=== PATIENT | female | born 1960 | race Caucasian/White ===

== ENCOUNTER → 2018-01-30 | Day surgery (SDC) | payer OTHER ==
[~2018-01-30] VITALS: Ht 170.2 cm; Wt 54.4 kg
[~2018-01-30] MED LIST: MULTI-VITAMIN1 EAC1 PO; VITAMIN D1000 UNIT PO
--- NOTE | 2018-01-30 11:43 | Operative Report ---
Operative/Inv Procedure Report Surgery Date: 01/30/18 Name of Procedure: Right shoulder arthroscopy with rotator cuff repair and subacromial decompression, open biceps tenodesis Pre-Operative Diagnosis: Right shoulder supraspinatus tendon tear, impingement, and biceps tendinitis Post-Operative Diagnosis: Right shoulder supraspinatus tendon tear, impingement, and biceps tendinitis Estimated Blood Loss: scant Surgeon/Agent Telegrapher: Tenzin ENCISO,Zenia Joe MD Anesthesia: general endotracheal tube, block Implants: Depuy Mitek Healix Advance Triple Loaded Lena 4.5mm x1 Depuy Mitek Healix Advance Knotless Lena 4.75mm x2 Arthrex Proximal biceps tenodesis button Drains: None Specimens: None Tourniquet: N/A Complications: None Condition: Stable Operative Indication: Patito Ayala is a 57 year old right hand dominant female who sustained a right shoulder injury in July 2017. She says she slipped and fell in the grocery store, injuring her right shoulder and left wrist. She was evaluated by her PCP, who recommended physical therapy. She continued to have increased pain and limited motion of the right shoulder; her evaluation in clinic at that time was consistent with adhesive capsulitis. She was treated with an intra- articular corticosteroid injection and physical therapy. Her motion improved, but she continued to have anterior shoulder pain, especially at night and with activities that required reaching away from her body. An MRI showed a full- thickness tear of the supraspinatus tendon. After discussing the risks, benefits, and alternatives to surgical intervention, she opted to proceed with right shoulder arthroscopy with rotator cuff repair and subacromial decompression, as well as possible open biceps tenodesis. Operative/Procedure Note Note: Patito Ayala arrived at [facility] on 01/30/2018. She was met in the pre-operative area, where her operative extremity was marked and her medical history was reviewed. All questions were answered for the patient and her friend. A regional block was performed by the anesthesia service. The patient was then taken into the operating room and placed supine on the operating room table. A timeout procedure was performed, in which the patient, operative extremity, and planned procedure were verified. SCDs were applied to bilateral lower legs. The patient was induced under general anesthesia and IV cefazolin was administered for antibiotic prophylaxis. The patient was repositioned in the modified beachchair position. Care was taken to pad all bony prominences and support the head in a neutral position. The right upper extremity was taken through a gentle range of motion, and no adhesions were appreciated. The right upper extremity was then prepped and draped in the usual sterile fashion. The posterior portal was created using a #11 blade scalpel, which allowed for introduction of the arthroscopic camera into the glenohumeral joint. The cartilage of the humeral head and glenoid was in good condition. There were no loose bodies noted within the inferior capsular pouch. In the anterior aspect of the shoulder, there was significant fraying of the long head of the biceps tendon as it attached to the superior labrum. An anterior portal was created after localization with a spinal needle, which allowed for introduction of a probe into the joint. A diagnostic arthroscopy was performed. Fraying of the anterior aspect of the rotator cuff was appreciated from the intra-articular aspect, however the posterior infraspinatus cuff tissue appeared to be in good condition. There was synovitis in the front of the shoulder surrounding the subscapularis. An electrocautery device was utilized to debride the anterior aspect of the shoulder for better visualization. On further evaluation, the subscapularis was noted to be in good condition. Spinal needle was passed through the biceps tendon and a PDS suture was passed through the tendon. The tendon was then cut from its attachment on the superior labrum using an arthroscopic scissor. Following the tenodesis portion of the procedure the camera was then taken into the subacromial space. A lateral portal was created after localization with a spinal needle. Using a combination of arthroscopic electrocautery and sheryl, a thorough bursectomy was performed in the subacromial space. The undersurface of the anterior lateral acromion was debrided of soft tissue and a moderate-sized anterolateral spur was appreciated. This was carefully removed using the shaver on forward to gently debride bone. This was done using the cutting block technique, utilizing the lateral and posterior portals to minimize bony resection. Once the decompression was complete, the camera was turned inferior to evaluate the rotator cuff tissue. A full-thickness U-shaped tear of the supraspinatus was appreciated, with retraction to the level of the articular margin. This was carefully debrided using a shaver. An additional anterolateral portal was created for better access to the cuff tear. Once the cuff was thoroughly debrided, a helix advanced 4.5 mm triple loaded anchor was placed on the articular margin. The sutures were then sequentially passed in horizontal mattresses and tied to reapproximate the cuff tissue back to the footprint. There was no significant tension on the repair given the minimal amount of retraction at this time. Once the medial row was repaired, the arm was taken into abduction. The sutures were divided to anterior and posterior bundles and tensioned in either the anterior or posterior knotless lateral row anchor. Once the rotator cuff repair was complete, the instruments were removed from the shoulder and any excess fluid was evacuated. The arm was taken to slight external rotation and abduction for the open biceps tenodesis portion of this procedure. The skin of the anterior medial shoulder and axilla was reprepped using DuraPrep. An incision was then made over the biceps at the level of the pectoralis major tendon insertion. This was taken through skin and subcutaneous tissues tissue down to the confluence of the deltoid and pectoralis muscles. The pectoralis major muscle was lifted superiorly as it attached on the humerus the biceps tendon was noted deep to this and carefully retracted anterior through the incision. A fiber loop stitch was passed through the biceps tendon approximately 1 cm proximal to the musculotendinous junction. The remaining pathologic biceps tendon tissue was removed. The sutures of the fiber loop were passed through the proximal biceps tenodesis button and secured. A pin was used to drill the anterior cortex of the humerus. This was removed and the proximal biceps tenodesis button was dropped into the medullary canal of the humerus. The sutures were then tensioned which allowed the biceps tendon to approximate to the anterior cortex of the humerus. The sutures were then passed through the tendon using a free needle and tied for additional fixation. The tendon was noted to be under appropriate tension and well adhered to the anterior humerus. The pectoralis major tendon was then released and the and allowed to drape over the long head of biceps tenodesis. The wound was copiously irrigated with normal saline. The incision was closed in layers using 2-0 Vicryl and a running 3-0 Prolene subcuticular stitch. The remaining portals were closed using the 3- 0 Prolene suture in an interrupted fashion. The tenodesis incision was further reinforced with Steri-Strips and Mastisol, and covered with gauze.. The portal sites were dressed with sterile Xeroform, gauze, and ABD pads. The dressings were secured with foam tape. The patient's right upper extremity was placed in an UltraSling. She was then repositioned supine on the operating room table and extubated. The patient was transported from the operating room to the postanesthesia care unit in stable condition.
== END ==
LOC: STS 03:29
DX: S46.011A Strain of muscle(s) and tendon(s) of the rotator cuff of right shoulder, initial encounter (principal); M75.21 Bicipital tendinitis, right shoulder; W19.XXXA Unspecified fall, initial encounter; M75.41 Impingement syndrome of right shoulder
CPT/HCPCS: C9290; J0690; J2250